=== PATIENT | male | born 1935 | race Caucasian/White ===

== ENCOUNTER 2017-03-14 13:47 | Emergency (ER) | payer MEDICARE ==
[2017-03-14 14:23] VITALS: BP 128/52
--- NOTE | 2017-03-14 14:43 | UC ---
Respiratory Complaint HPI - History of Current Complaint Chief Complaint: UCGeneralIllness Stated Complaint: COUGH X 1 WEEK Time Seen by Provider: 03/14/17 14:37 Hx Obtained From: Patient Onset/Duration: Gradual Onset, Lasting Weeks - 2, Worse Since - in the last week. Most of the URI sx have resolved but the cough is still a problem at night. Timing: Constant - but worse at night. Severity Initially: Mild Severity Currently: Mild Character: Cough: Nonproductive Alleviating Factors: Nothing Associated Signs And Symptoms: Positive: Wheezing, URI - Risk Factors Pulmonary Embolism Risk Factors: Negative Cardiac Risk Factors: CAD Pseudomonas Risk Factors: Negative Tuberculosis Risk Factors: Diabetes - Allergies/Home Medications Allergies/Adverse Reactions: Allergies Allergy/AdvReac Type Severity Reaction Status Date / Time No Known Allergies Allergy Verified 03/14/17 14:23 Home Medications: Home Medications Aspirin [Aspirin Enteric Coated 81 MG] 81 mg PO DAILY 03/14/17 [History Confirmed 03/14/17] Insulin ASPART (NF) [Novolog (NF)] 100 unit .SEE ORDER TID 03/14/17 [History Confirmed 03/14/17] Insulin Glargine [Basaglar Kwikpen] 100 unit SC SEE INSTRUCTIONS 03/14/17 [ History Confirmed 03/14/17] Levothyroxine TAB* [Synthroid TAB*] 25 mcg PO 0800 03/14/17 [History Confirmed 03/14/17] Lisinopril [Lisinopril 2.5 MG-] 0.5 tab PO DAILY 03/14/17 [History Confirmed ] Warfarin TAB(*) [Coumadin TAB(*)] 2.5 mg PO SEE INSTRUCTIONS 03/14/17 [History Confirmed 03/14/17] PMH/Surg Hx/FS Hx/Imm Hx Endocrine History Of: Reports: Diabetes, Thyroid Disease Cardiovascular History Of: Reports: Cardiac Disorders - pacer/defib, Hypertension - Surgical History Surgical History: Yes Surgery Procedure, Year, and Place: pacer/defib. open heart for valve. T & A - Family History Known Family History: Negative: Cardiac Disease, Hypertension, Diabetes - Social History Occupation: Retired Lives: With Family Alcohol Use: Daily Alcohol Amount: 3 shots during the summer Substance Use Type: None Smoking Status (MU): Current Some Day Smoker Type: Cigars Amount Used/How Often: in summer time - Immunization History Most Recent Influenza Vaccination: [id number] Review of Systems Respiratory: Cough All Other Systems Reviewed And Are Negative: Yes Physical Exam Triage Information Reviewed: Yes Appearance: Well-Appearing, No Pain Distress, Well-Nourished Vital Signs: Initial Vital Signs Temp 98.2 F 03/14/17 14:14 Pulse 83 03/14/17 14:14 Resp 18 03/14/17 14:14 BP 128/52 03/14/17 14:14 Pulse Ox 96 03/14/17 14:14 Vital Signs Reviewed: Yes Eyes: Positive: Conjunctiva Clear ENT: Positive: Hearing grossly normal - bilateral wax blocking canals., Pharynx normal Neck exam: Normal Respiratory: Positive: Wheezing - expiratory wheezes with coughing. Cardiovascular: Positive: RRR, Murmur:Sys:Grade _?_/ - 2/6 Musculoskeletal Exam: Normal Neurological Exam: Normal Psychological Exam: Normal Skin Exam: Normal UC Diagnostic Evaluation - Laboratory O2 Sat by Pulse Oximetry: 96 Respiratory Course/Dx - Differential Dx/Diagnosis Differential Diagnosis/HQI/PQRI: Asthma, Lower Resp Infection, Sinusitis Provider Diagnoses: Acute URI. Acute bronchospasm Discharge - Discharge Plan Condition: Stable Disposition: HOME
== END 2017-03-14 15:07 | disposition home or self-care (01) ==
LOC: UCCORT 13:47
DX: J06.9 Acute upper respiratory infection, unspecified (principal); J98.01 Acute bronchospasm; E11.9 Type 2 diabetes mellitus without complications; Z79.4 Long term (current) use of insulin; E07.9 Disorder of thyroid, unspecified; I10 Essential (primary) hypertension; Z95.810 Presence of automatic (implantable) cardiac defibrillator; Z72.0 Tobacco use
CPT/HCPCS: 99212; G0463

== ENCOUNTER 2017-12-15 11:16 | Emergency (ER) | payer MEDICARE ==
[2017-12-15] MEDS ORDERED: Albuterol 2.5 MG/3 ML NEB.SOL* (0.083%) INH ONE (13:07)
--- NOTE | 2017-12-15 13:17 | UC ---
Respiratory Complaint HPI - HPI Summary HPI Summary: pt's states she got the flu. about 2 days after, pt developed a cough with chest congestion plus some wheezing for the past 10-12 days. he admits to yellowish sputum and sob but denies fever, chills, cp and body aches. he has no hx copd/asthma or chf. he has ankle edema which they note is chronic and unchanged. pt states he gets this about once a year. - History of Current Complaint Chief Complaint: UCRespiratory Stated Complaint: COUGH *10 DAYS Time Seen by Provider: 12/15/17 12:59 Hx Obtained From: Patient, Family/Creative Services Director Onset/Duration: Gradual Onset Timing: Constant Pain Intensity: 0 Aggravating Factors: Nothing Alleviating Factors: Nothing Associated Signs And Symptoms: Positive: Dyspnea, Wheezing. Negative: Fever, Chills, Hemoptysis, Calf Pain, Calf Swelling, Nasal Congestion, Hoarseness, Sinus Discomfort - Risk Factors Pulmonary Embolism Risk Factors: Negative - Allergies/Home Medications Allergies/Adverse Reactions: Allergies Allergy/AdvReac Type Severity Reaction Status Date / Time ferrous sulfate Allergy Constipatio Verified 12/15/17 12:40 n PMH/Surg Hx/FS Hx/Imm Hx Endocrine History: Diabetes Cardiovascular History: Cardiac Disease, Pacemaker/ICD - Surgical History Surgical History: Yes Surgery Procedure, Year, and Place: pacer/defib. open heart for CABG, valve. T & A - Family History Known Family History: Negative: Cardiac Disease, Hypertension, Diabetes - Social History Occupation: Retired Lives: With Family Alcohol Use: Daily Alcohol Amount: 3 shots during the summer Substance Use Type: None Smoking Status (MU): Current Some Day Smoker Type: Cigars Amount Used/How Often: in summer time Have You Smoked in the Last Year: Yes - summer only - Immunization History Most Recent Influenza Vaccination: [id number] Vaccination Up to Date: Yes Review of Systems Constitutional: Negative Skin: Negative Eyes: Negative ENT: Negative Respiratory: Shortness Of Breath, Cough Cardiovascular: Negative Gastrointestinal: Negative Genitourinary: Negative Motor: Negative Neurovascular: Negative Musculoskeletal: Negative Neurological: Negative Psychological: Negative Is Patient Immunocompromised?: No All Other Systems Reviewed And Are Negative: Yes Physical Exam Triage Information Reviewed: Yes Appearance: Well-Appearing Vital Signs: Initial Vital Signs Temp 98.9 F 12/15/17 12:45 Pulse 67 12/15/17 12:45 Resp 22 12/15/17 12:45 BP 139/68 12/15/17 12:45 Pulse Ox 98 12/15/17 12:45 Vital Signs Reviewed: Yes Eyes: Positive: Conjunctiva Clear ENT: Positive: Pharynx normal, TMs normal. Negative: Nasal congestion, Nasal drainage Neck: Positive: Supple, Nontender, No Lymphadenopathy, Other: - No JVD Respiratory: Positive: No respiratory distress, No accessory muscle use, Decreased breath sounds, Wheezing, Other: - cough is congested. Cardiovascular: Positive: RRR, No Murmur, Pulses Normal Abdomen Description: Positive: Nontender, No Organomegaly, Soft Bowel Sounds: Positive: Present Musculoskeletal: Positive: Edema @ - ankles(pt/, chronic and unchanged). No calf pain, cord, swelling. Psychological: Positive: Normal Response To Family, Age Appropriate Behavior Skin Exam: Normal UC Diagnostic Evaluation - Laboratory O2 Sat by Pulse Oximetry: 98 - Radiology Xray Interpretation: No Acute Changes Radiology Interpretation Completed By: Radiologist Re-Evaluation - Re-Evaluation Second Eval Re-Evaluation Time: 02:00 - pt states pt having "an insulin reaction". pt noted to be alert and shakey plus sweaty. pt given 2 juices and a sode. less sweaty after but still shakey. gave pt a shot from his glucagon kit. BS was 39. Dr Carrillo at bedside and placed an IV. ER transfer offered, pt and refused. 15 gram oral glucose given. will repeat BS after Third Eval Re-Evaluation Time: 14:30 - pt states he is feeling fine, no longer shakey or sweaty. BS=[address] discharge. they will go directly to eat. wiil check a 3rd BS before discharge. Fourth Eval Re-Evaluation Time: 14:41 - ax=075, pt states is fine now. no sweating, not shakey. pt a&o. d/w dr carrillo and will d/c. Respiratory Course/Dx - Course Course Of Treatment: Post neb tx, improved aeration and wheezing resolved. non toxic, not hypoxic. no infiltrate on cxr and nothing to suggest chf/cardiac. bronchospasm on exam thus will tx with albuterol. also, ill x 12 days with purulent sputum and not improving thus will cover for secondary bacterial infection. vss at time of d/c. i attribute bp to illness and stress. close f/u pcp stressed. - Differential Dx/Diagnosis Provider Diagnoses: cough, bronchospasm. 30 minutes critical care for hypoglycemia and tachycardia. Discharge - Discharge Plan Condition: Stable Disposition: HOME Patient Education Materials: Acute Bronchitis (ED), Bronchospasm (ED) Referrals: Reece Espino MD [Primary Care Provider] - 1 Day Additional Instructions: ZITHROMAX Z-DANG AND ALBUTEROL MDI 2 PUFFS q6 HOURS=SENT TO [facility] AT [facility] REQUEST.
--- NOTE | 2017-12-15 13:37 | RAD ---
INDICATION: Cough. Wheezing COMPARISON: November 18, 2011 TECHNIQUE: PA and lateral dual-energy views were obtained. FINDINGS: Bones/Soft Tissues: There are no acute bony findings. There is sternotomy. There is a left-sided cardiac pacemaker Cardiomediastinal: The cardiomediastinal silhouette is mildly prominent, unchanged. There is valvular surgery. Lungs: There are no infiltrates. There is hyperinflation. Pleura: There are no pleural effusions. Other: None IMPRESSION: POSTOPERATIVE CHANGES. HYPERINFLATION. NO ACTIVE DISEASE
[2017-12-15] MEDS ORDERED: Glucose ORAL* 15 GM TUBE PO ONE (14:09)
[2017-12-15 15:01] VITALS: BP 160/59
== END 2017-12-15 15:03 | disposition home or self-care (01) ==
LOC: UCCORT 11:16
DX: J98.01 Acute bronchospasm (principal); E16.2 Hypoglycemia, unspecified; R00.0 Tachycardia, unspecified; Z20.828 Contact with and (suspected) exposure to other viral communicable diseases; F17.290 Nicotine dependence, other tobacco product, uncomplicated
CPT/HCPCS: 71046; 99213; G0463